=== PATIENT | male | born 1995 | race Caucasian/White ===

== ENCOUNTER 2018-08-05 12:28 | Emergency (ER) | payer OTHER ==
[~2018-08-05] VITALS: Ht 188 cm; Wt 81.6 kg
[2018-08-05 12:40] VITALS: BP 133/84
== END 2018-08-05 14:27 | disposition home or self-care (01) ==
LOC: ER 12:28
DX: S43.101A Unspecified dislocation of right acromioclavicular joint, initial encounter (principal); V00.311A Fall from snowboard, initial encounter; Y93.23 Activity, snow (alpine) (downhill) skiing, snowboarding, sledding, tobogganing and snow tubing; Y92.89 Other specified places as the place of occurrence of the external cause; Y99.8 Other external cause status
CPT/HCPCS: 73030